=== PATIENT | male | born 1965 | race Caucasian/White ===

== ENCOUNTER 2019-01-05 13:50 | Emergency (ER) | payer OTHER ==
[~2019-01-05] VITALS: Ht 176.5 cm; Wt 84.0 kg
[2019-01-05 14:06] VITALS: BP 146/92
[2019-01-05] MEDS ORDERED: ketorolac tromethamine 15mg/ml inj. IM ONE (15:35)
--- NOTE | 2019-01-05 16:02 | NUR ---
US IN ROOM WITH PATIENT
[2019-01-05] MEDS ORDERED: ACET-2119 PO (17:01)
[2019-01-05] MEDS ORDERED: HYDR-3965 PO (17:01)
[2019-01-05] MEDS ORDERED: IBUP-1985 PO (17:01)
== END 2019-01-05 17:09 | disposition home or self-care (01) ==
LOC: ER 13:51
DX: R10.32 Left lower quadrant pain (principal); Z79.899 Other long term (current) drug therapy; X50.0XXA Overexertion from strenuous movement or load, initial encounter; Y93.89 Activity, other specified; Y92.89 Other specified places as the place of occurrence of the external cause; Y99.8 Other external cause status
CPT/HCPCS: 76882; 96372; 99284; J1885